=== PATIENT | male | born 1955 | race Caucasian/White ===

== ENCOUNTER → 2018-02-17 | Outpatient (CLI) | payer SELFPAY ==
[2018-02-17 08:23] LABS: ALT 60 U/L (21-72); AST 38 U/L (17-59); Cholesterol 107 mg/dL (<200); HDL Cholesterol 45 mg/dL (40-60); LDL Cholesterol,Calculated 52 mg/dL (0-99); Triglycerides 51 mg/dL (<150)
== END | disposition home or self-care (01) ==
LOC: LABWHC1 07:12
PROVIDERS: ATTEND Nurse Practitioner Adult Health
DX: E78.2 Mixed hyperlipidemia (principal)
CPT/HCPCS: 36415; 80061; 84450; 84460

== ENCOUNTER → 2019-03-04 | Outpatient (CLI) | payer SELFPAY ==
[2019-03-04 11:47] LABS: Cholesterol 115 mg/dL (0-200); Triglycerides <50.0 mg/dL (0.0-149.0); VLDL Calculation 9.98 mg/dL (5.00-40.00)
== END | disposition home or self-care (01) ==
LOC: LABWHC1 07:18
PROVIDERS: ATTEND Nurse Practitioner Adult Health
DX: E78.5 Hyperlipidemia, unspecified (principal)
CPT/HCPCS: 36415; 80061

== ENCOUNTER 2022-05-02 12:15 | Day surgery (SDC) | payer MEDICARE ==
[2022-05-01 13:32] VITALS: BMI 22.4
--- NOTE | 2022-05-02 10:33 | P.GSHP ---
History of Present Illness H&P Date: 05/02/22 Chief Complaint: Left renal colic The patient is a 67-year-old white male with a history of kidney stones 20 years ago. He now presents with a one-week history of left flank pain radiating to the left groin. CT scan shows left hydronephrosis due to a 7 mm left proximal ureteral calculus. I had a lengthy discussion with the patient and his . We reviewed alternative treatment options, which include medical expulsion therapy, ESWL, and ureteroscopy with laser lithotripsy. After reviewing the pros, cons, and risks of each approach he has elected to undergo the latter. - Constitutional Constitutional: Denies chills, Denies fever - Gastrointestinal Gastrointestinal: Denies nausea, Denies vomiting - Genitourinary (Male) Genitourinary: Reports flank pain, Reports kidney stones, Denies hematuria Past Medical History Past Medical History: Diabetes Mellitus, Hyperlipidemia, Hypertension, Myocardial Infarction ([place]) Additional Past Medical History / Comment(s): Kidney stones, diet controlled diabetes Last Myocardial Infarction Date:: 2008 History of Any Multi-Drug Resistant Organisms: None Reported Past Surgical History: Heart Catheterization With Stent, Orthopedic Surgery Additional Past Surgical History / Comment(s): Colonoscopy, ankle surgery. Past Anesthesia/Blood Transfusion Reactions: Family History of Problems w/ Anesthesia Additional Past Anesthesia/Blood Transfusion Reaction / Comment(s): States his father had one episode of problems with anesthesia. States not sure what happened. Date of Last Stent Placement:: 2008 Smoking Status: Never smoker - Past Family History Mother Family Medical History: No Reported History Father Family Medical History: Cancer Additional Family Medical History / Comment(s): Prostate Medications and Allergies Home Medications Medication Instructions Recorded Confirmed Type Aspirin 81 mg PO DAILY 05/01/22 05/01/22 History Atorvastatin [Lipitor] 20 mg PO HS 05/01/22 05/01/22 History Metoprolol Tartrate [Lopressor] 12.5 mg PO BID 05/01/22 05/01/22 History Allergies Allergy/AdvReac Type Severity Reaction Status Date / Time No Known Allergies Allergy Verified 05/01/22 13:14 Surgical - Exam - General well developed, well nourished, no distress - Neck no masses, trachea midline - Respiratory normal respiratory effort - Abdomen Abdomen: soft, tender (Mild left lower quadrant tenderness to palpation), no guarding, no rigid, no rebound - Genitourinary normal penis with no external lesions, testicles non-tender - Psychiatric oriented to time, oriented to person, oriented to place, speech is normal, memory intact Results - Imaging CT scan - abdomen: report reviewed, image reviewed Assessment and Plan (1) Calculus of ureter Status: Acute Code(s): N20.1 - CALCULUS OF URETER SNOMED Code(s): 23891724 (2) Hydronephrosis with ureteral calculus Status: Acute Code(s): N13.2 - HYDRONEPHROSIS WITH RENAL AND URETERAL CALCULOUS OBSTRUCTION SNOMED Code(s): 33247416 Plan: Cystoscopy, left ureteroscopy with Holmium laser lithotripsy, right ureteral stent insertion. Stone basketing may be required. The procedure has been reviewed in detail with the patient and his . They have been made aware of potential risks, which include anesthesia, bleeding, infection, and ureteral injury. They are also aware of the possible need for a secondary procedure.
--- NOTE | 2022-05-02 12:42 | XR ---
EXAMINATION TYPE: XR KUB DATE OF EXAM: 05/02/2022 Comparison: None Clinical History: 67-year-old male presurgical for left-sided renal stone, Lithotripsy on 05/02/[address] Peralta Findings: Borderline distended right mid abdominal small bowel loop measuring up to 3.3 cm. Scattered mild to m oderate stool is present. Calcifications in the pelvis could represent phleboliths. Central prosthetic calcifications are noted . Questionable 5 mm calcification left paramedian mid abdomen at the L4 level. Possible 4 mm calcificat ion projecting of the left kidney. Impression: 1. 5 mm density left paramedian mid abdomen. Correlate for possible mid ureteral stone. 2. Possible 4 mm left renal calculus. 3. Calcifications in the pelvis probably represent phleboliths as well as central prosthetic calcific ations. 4. A couple borderline to mildly distended small bowel loops in the right midabdomen measuring up to 3.3 cm. Findings may be transient. Correlate for regional ileus or enteritis.
[2022-05-02] MEDS ORDERED: ONDANSETRON 4 MG/2 ML VIAL ONE (12:58)
[2022-05-02 13:00] VITALS: TEMP 97.7
[2022-05-02] MEDS ORDERED: LIDOCAINE 1% (10MG/ML) FOR IV START INTRADERMA ONE (13:00)
[2022-05-02] MEDS ORDERED: LACTATED RINGERS 1,000 ML IV ONE ×3 (13:00→15:51)
[2022-05-02] MEDS ORDERED: DEXAMETHASONE SOD PHOSPHATE 4 MG/ML 1 ML VIAL IV ONE (13:02)
[2022-05-02 13:07] LABS: Glucose,Whole Blood 177 mg/dL (70-110)
[2022-05-02] MEDS ORDERED: SUCCINYLCHOLINE CHLORIDE 200 MG/10 ML VIAL IV ONE (14:06)
[2022-05-02] MEDS ORDERED: LIDOCAINE 2% INJ 20 MG/ML (2 ML VIAL) ONE (14:06)
[2022-05-02] MEDS ORDERED: fentaNYL (PF) 50 MCG/ML 2 ML AMP ONE (14:06)
[2022-05-02] MEDS ORDERED: PROPOFOL 10 MG/ML 20 ML VIAL IV ONE (14:06)
[2022-05-02] MEDS ORDERED: MIDAZOLAM 2 MG/2 ML VIAL ONE (14:06)
[2022-05-02] MEDS ORDERED: IOPAMIDOL-370 50ML BTL MISCELLANE ONE ×2 (14:34)
--- NOTE | 2022-05-02 14:59 | P.OP ---
Date of Procedure: 05/02/22 Preoperative Diagnosis: Left ureteral calculus Postoperative Diagnosis: Same Procedure(s) Performed: Cystoscopy, left retrograde pyelogram, left ureteroscopy with Holmium laser lithotripsy Anesthesia: ROJAS Surgeon: Tera Peralta Estimated Blood Loss (ml): 0 IV fluids (ml): 300 Pathology: other (Calculus fragments, sent for chemical analysis) Condition: stable Disposition: PACU Indications for Procedure: The patient is a 67-year-old white male with a history of kidney stones 20 years ago. He now presents with a one-week history of left flank pain radiating to the left groin. CT scan shows left hydronephrosis due to a 7 mm left proximal ureteral calculus. I had a lengthy discussion with the patient and his . We reviewed alternative treatment options, which include medical expulsion therapy, ESWL, and ureteroscopy with laser lithotripsy. After reviewing the pros, cons, and risks of each approach he has elected to undergo the latter. Preoperative KUB x-ray suggests that the calculus may have migrated to the distal ureter. Operative Findings: Left distal ureteral calculus, fragmented and removed completely. Description of Procedure: The patient was taken to the operating room and placed in the dorsolithotomy position, with legs supported in Jose stirrups. The external genitalia was prepped and draped sterilely. The 30 lens was used to introduce the 21-Austrian Townsend cystoscopic sheath through the urethra and into the bladder under direct vision. The prostatic urethra showed evidence of mild lateral lobe enlargement. The bladder was examined in its entirety. Both ureteral orifices were normal anatomic location and configuration, and clear urine effluxed from both. No tumors or foreign bodies were seen. Using a 10-Austrian cone-tipped catheter, a left retrograde pyelogram was performed. The calculus was confirmed to be within the left distal ureter. The cone-tipped catheter was advanced to dilate the ureteral orifice. The cystoscope was then removed. The Townsend semirigid ureteroscope was advanced into the bladder, and the left ureteral orifice was cannulated. The ureteroscope was advanced up to the calculus. The 365 micron Holmium laser probe was passed through the ureteroscope, and lithotripsy was performed. The calculus was dense, likely composed of calcium oxalate monohydrate. After fragmenting the calculus, all calculus fragments passed distally into the bladder. The ureter was inspected. There was no evidence of ureteral trauma. There were no residual calculus fragments within the ureter. The ureteroscope was removed, and the cystoscope was replaced and the bladder. Calculus fragments were removed from the bladder and sent for chemical analysis. The bladder was emptied and the cystoscope removed. The patient tolerated the procedure well and was taken to the recovery room in stable condition. MARYNANE AGUIRRE Report: Procedure Acuity: Urgent Stone Size and Location: 7 mm, left distal ureter Ureteral Dilation: No Ureteral Access Sheath Used: No Stone Sent for Analysis: Yes All Stones/Fragments Were Removed with a Basket: Yes Complications: No Preoperative Antibiotics Given: Yes Stent Placed: No Discharge Medications: Toradol
[2022-05-02] MEDS ORDERED: HYDROmorphone 0.5 MG/0.5 ML SYRINGE IVP ONE ×3 (15:26→16:26)
[2022-05-02 17:13] VITALS: PULSE 60; RESP 18
[2022-05-02 17:34] VITALS: BP 173/93
--- NOTE | 2022-05-02 21:08 | FL ---
Fluoroscopy INDICATION: Pain some left ureteral stone FINDINGS: Fluoroscopy time: Not recorded seconds. Images obtained: 0. IMPRESSIONS: 1. Documentation of fluoroscopy.
== END 2022-05-02 17:37 | disposition home or self-care (01) ==
LOC: OR 12:15
PROVIDERS: ATTEND Urology
DX: N20.1 Calculus of ureter (principal); E11.9 Type 2 diabetes mellitus without complications; E78.5 Hyperlipidemia, unspecified; I10 Essential (primary) hypertension; I25.2 Old myocardial infarction; N20.0 Calculus of kidney; Z98.890 Other specified postprocedural states; Z95.5 Presence of coronary angioplasty implant and graft; Z80.9 Family history of malignant neoplasm, unspecified; Z79.52 Long term (current) use of systemic steroids; Z79.899 Other long term (current) drug therapy
CPT/HCPCS: 52353; 82365; 74420; 74018; C1758; C1769; J2250; J0330; J1100; J2405; J0690; J3010; J2704; J1170; Q9967; J2001

== ENCOUNTER → 2022-06-06 | Outpatient (CLI) | payer MEDICARE ==
--- NOTE | 2022-06-06 14:04 | US ---
EXAMINATION TYPE: US kidneys/renal and bladder DATE OF EXAM: 06/06/2022 COMPARISON: NONE CLINICAL HISTORY: 67-year-old male N13.2 HYDRONEPHROSIS. History of kidney stones TECHNIQUE: Multiple sonographic images of the kidneys and bladder are obtained. FINDINGS: EXAM MEASUREMENTS: Right Kidney: 10.8 x 6.2 x 5.5 cm Left Kidney: 11.6 x 5.4 x 5.9 cm Right Kidney: hydronephrosis Left Kidney: hydronephrosis Bladder: wnl Bilateral Jets seen: yes IMPRESSION: Apparent mild to moderate dilatation/hydronephrosis of the bilateral renal collecting systems. Sita r, both ureteral jets are visualized in the bladder. If indicated, consider further CT urogram evalua tion. The contrast-enhanced CT can also differentiate parapelvic cysts.
== END | disposition home or self-care (01) ==
LOC: RADUSWWP 12:14
PROVIDERS: ATTEND Urology
DX: N13.2 Hydronephrosis with renal and ureteral calculous obstruction (principal)
CPT/HCPCS: 76770